=== PATIENT | female | born 1995 | race Caucasian/White ===

== ENCOUNTER 2020-09-01 12:26 | Emergency (ER) | payer OTHER ==
[2020-09-01 12:49] VITALS: BP 124/79; PULSE 111; O2SAT 96
[2020-09-01] MEDS ORDERED: BENADRYL 50 MG/ML IM ONE (12:54)
[2020-09-01] MEDS ORDERED: Pepcid 20 MG PO ONE (12:54)
[2020-09-01] MEDS ORDERED: solu-MEDROL 125 MG IM ONE (12:54)
--- NOTE | 2020-09-01 13:01 | ERPHSYRPT ---
- History of Present Illness Time Seen by Provider: 09/01/20 12:28 Source: patient Exam Limitations: no limitations Patient Subjective Stated Complaint: allergic reaction Triage Nursing Assessment: Patient ambulated back to ED and transferred self to bed. Patient A+O X3. Patient's skin pink, warm and dry. Patient states her neck started itching and had redness. Patient states she woke up today and has red rash all over body. Patient states the rash melara and itches. Patient denies any new products of consumption of food. Patient denies trouble breathing or swallowing at this time. Physician History: 25 years old female presented in the ER with chief complaint of itching and burning sensation all over body. Patient reports initially started as a burning/itching around the neck and upper back yesterday, took Benadryl and this morning woke up with rash all over. Denies any difficulty breathing or scratchiness in the throat/throat closing sensation. Unable to figure out any known allergen causing this. Timing/Duration: yesterday, gradual onset, worse Quality: burning, itchy Severity: moderate Location: generalized Possible Causes: no cause identified Modifying Factors: Improves With: antihistamine Associated Symptoms: rash, No difficulty breathing, No nasal congestion, No sore throat Allergies/Adverse Reactions: banana Allergy (Verified 09/01/20 12:35) latex Allergy (Verified 09/01/20 12:35) Penicillins Allergy (Verified 09/01/20 12:31) Home Medications: Norgestimate-Ethinyl Estradiol [Tri Femynor 28 Tablet] 1 tab PO DAILY 09/01/20 [History] Hx Influenza Vaccination/Date Given: Yes Hx Pneumococcal Vaccination/Date Given: No Immunizations Up to Date: Yes Travel Risk - International Travel Have you traveled outside of the country in past 3 weeks: No - Coronavirus Screening Are you exhibiting any of the following symptoms?: No Close contact with a COVID-19 positive Pt in past 14-21 Days: No - Vaccine Status Have you recieved a Covid-19 vaccination: No - Review of Systems Constitutional: No Symptoms Eyes: No Symptoms Ears, Nose, & Throat: No Symptoms Respiratory: No Symptoms Cardiac: No Symptoms Abdominal/Gastrointestinal: No Symptoms Genitourinary Symptoms: No Symptoms Musculoskeletal: No Symptoms Skin: Rash Neurological: No Symptoms Psychological: No Symptoms Endocrine: No Symptoms Hematologic/Lymphatic: No Symptoms Immunological/Allergic: No Symptoms - Past Medical History Pertinent Past Medical History: Yes Neurological History: Migraines ENT History: No Pertinent History Cardiac History: No Pertinent History Respiratory History: No Pertinent History Endocrine Medical History: No Pertinent History Musculoskeletal History: No Pertinent History GI Medical History: No Pertinent History History: No Pertinent History Female Reproductive Disorders: No Pertinent History - Past Surgical History Past Surgical History: Yes Neuro Surgical History: No Pertinent History Cardiac: No Pertinent History Respiratory: No Pertinent History Gastrointestinal: No Pertinent History Genitourinary: No Pertinent History Musculoskeletal: No Pertinent History Female Surgical History: Other Other Surgical History: mass removed from right ovary along with ovary, right fallopian tube and lining of colon - Social History Smoking Status: Current every day smoker How long have you smoked: years Exposure to second hand smoke: Yes Drug Use: marijuana Patient Lives Alone: No - Female History Hx Last Menstrual Period: currently Hx Now: No - Nursing Vital Signs Nursing Vital Signs: Initial Vital Signs Temperature 98.8 F 09/01/20 12:35 Pulse Rate 111 H 09/01/20 12:35 Respiratory Rate 18 09/01/20 12:35 Blood Pressure 124/79 09/01/20 12:35 O2 Sat by Pulse Oximetry 94 L 09/01/20 12:35 Pain Scale Pain Intensity 0 - Physical Exam General Appearance: no apparent distress, alert Eye Exam: PERRL/EOMI, eyes nml inspection Ears, Nose, Throat Exam: normal ENT inspection, TMs normal, pharynx normal, moist mucous membranes Neck Exam: normal inspection, non-tender, supple, full range of motion Respiratory Exam: normal breath sounds, lungs clear Cardiovascular Exam: regular rate/rhythm, normal heart sounds Back Exam: normal inspection, normal range of motion Extremity Exam: normal inspection, normal range of motion Neurologic Exam: alert, oriented x 3, cooperative, account technician II-XII nml as tested Skin Exam: rash (Slightly raised/blotchy/blanchable rash from neck down spurted in different locations. No tenderness to touch.) SpO2 Interpretation: normal SpO2: 96 O2 Delivery: Room Air Ordered Tests: Medication Summary Discontinued Medications Generic Name Dose Route Start Last Admin Trade Name Freq PRN Reason Stop Dose Admin Diphenhydramine HCl 50 mg 09/01/20 12:54 09/01/20 13:07 Benadryl 50 Mg/Ml IM 09/01/20 12:55 50 mg STAT ONE Administration Diphenhydramine HCl Confirm 09/01/20 13:05 Benadryl 50 Mg/Ml Administered 09/01/20 13:06 Dose 50 mg .ROUTE .STK-MED ONE Famotidine 40 mg 09/01/20 12:54 09/01/20 13:06 Pepcid 20 Mg PO 09/01/20 12:55 40 mg STAT ONE Administration Famotidine Confirm 09/01/20 13:05 Pepcid 20 Mg Administered 09/01/20 13:06 Dose 40 mg .ROUTE .STK-MED ONE Methylprednisolone Sodium Succinate 125 mg 09/01/20 12:54 09/01/20 13:07 Solu-Medrol 125 Mg IM 09/01/20 12:55 125 mg STAT ONE Administration Methylprednisolone Sodium Succinate Confirm 09/01/20 13:05 Solu-Medrol 125 Mg Administered 09/01/20 13:06 Dose 125 mg .ROUTE .STK-MED ONE - Progress Progress: improved Progress Note: She is given Solu-Medrol, Benadryl and Pepcid. Feeling better. We will continue with these meds to go home. Also will give EpiPen to use as needed. No respiratory symptoms at all. Stable for discharge with outpatient follow-up. 09/01/20 13:30 Counseled pt/family regarding: diagnosis, need for follow-up - Departure Departure Disposition: Home Clinical Impression: Allergic reaction Qualifiers: Encounter type: initial encounter Qualified Code(s): T78.40XA - Allergy, unspecified, initial encounter Condition: Stable Critical Care Time: No Referrals: DOCTOR,NO FAMILY [Primary Care Provider] - CAROLINE SAAB [ACTIVE STAFF] - (1-2 days for reevaluation) Instructions: Anaphylaxis, Allergy Skin Testing Additional Instructions: Follow-up with primary care for reevaluation and may need to follow-up with all ergist for further evaluation. Return to ER if have throat closing sensation, difficulty breathing or swelling of tongue etc. Prescriptions: Diphenhydramine HCl 25 mg [Benadryl 25 mg Capsule] 25 mg PO Q4H PRN PRN #20 capsule PRN Reason: Allergies Prednisone 20 mg [Deltasone 20 mg] 60 mg PO DAILY 5 Days #15 tablet Epinephrine [Epipen] 0.3 mg IM DIRECTIONS UNKNOWN PRN 1 Days #2 ml PRN Reason: Allergies Famotidine 20 mg [Pepcid 20 MG] 20 mg PO BID #14 tablet Albuterol 8 gm Mdi Hfa [Ventolin Hfa MDI] 8 gm IH Q4H #1 hfa.[email or web address].[email or web address]
[2020-09-01] MEDS ORDERED: solu-MEDROL 125 MG ONE (13:05)
[2020-09-01] MEDS ORDERED: BENADRYL 50 MG/ML ONE (13:05)
[2020-09-01] MEDS ORDERED: Pepcid 20 MG ONE (13:05)
== END 2020-09-01 13:49 | disposition home or self-care (01) ==
LOC: ED 12:26
DX: T78.40XA Allergy, unspecified, initial encounter (principal)
CPT/HCPCS: 96372; 99284; J1200; J2930; A9270-GY

== ENCOUNTER 2021-06-05 10:43 | Emergency (ER) | payer OTHER ==
[2021-06-05] MEDS ORDERED: Sodium Chloride 0.9% 1000 ML 1,000 ML IV STA (11:13)
--- NOTE | 2021-06-05 11:14 | ERPHSYRPT ---
- History of Present Illness Time Seen by Provider: 06/05/21 11:05 Source: patient Exam Limitations: no limitations Patient Subjective Stated Complaint: pt here for vanigal bleeding this morning when she woke , she is 7 weeks . she is having cramping, pt states she had intercourse last night Triage Nursing Assessment: pt alert, resp easy, skin w/d/p. face mask in place, abd soft, Physician History: This is a 25-year-old white female patient of Dr. Licea who presents with vaginal bleeding and suprapubic cramping that occurred this morning. Patient had sexual intercourse last evening. Patient is approximately 7 weeks along per her dates. She is not dizzy. She is not short of breath. Her nurse discharge planner has been notified and he sent her here for evaluation. Timing/Duration: today Activites at Onset: sexual activity (The morning after) Quality: cramping Onset Location: suprapubic, vaginal Pain Radiation: none Severity of Pain-Max: mild (To moderate) Severity of Pain-Current: mild Prior abdominal problems: none Sexual intercourse history: single partner Modifying Factors: Improves With: nothing Associated Symptoms: abdominal pain, , vaginal discharge Allergies/Adverse Reactions: banana Allergy (Verified 06/05/21 11:02) latex Allergy (Verified 06/05/21 11:02) Penicillins Allergy (Verified 06/05/21 11:02) Home Medications: Vit37/Iron/Folic Acid [Prenata Chewable Tablet] 1 ea DAILY 06/05/21 [History] Hx Influenza Vaccination/Date Given: Yes Hx Pneumococcal Vaccination/Date Given: No Travel Risk - International Travel Have you traveled outside of the country in past 3 weeks: No - Coronavirus Screening Are you exhibiting any of the following symptoms?: No Close contact with a COVID-19 positive Pt in past 14-21 Days: No - Vaccine Status Have you recieved a Covid-19 vaccination: Yes 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: Moderna - Vaccination Dates Date of 2cond Vaccination (if applicable): n/a - Review of Systems Constitutional: No Symptoms Eyes: No Symptoms Ears, Nose, & Throat: No Symptoms Respiratory: No Symptoms Cardiac: No Symptoms Abdominal/Gastrointestinal: Abdominal Pain (Supra pubic cramping) Genitourinary Symptoms: Vaginal Bleeding Musculoskeletal: No Symptoms Skin: No Symptoms Neurological: No Symptoms Psychological: No Symptoms Endocrine: No Symptoms Hematologic/Lymphatic: No Symptoms Immunological/Allergic: No Symptoms All Other Systems: Reviewed and Negative - Past Medical History Pertinent Past Medical History: Yes Neurological History: Migraines ENT History: No Pertinent History Cardiac History: No Pertinent History Respiratory History: No Pertinent History Endocrine Medical History: No Pertinent History Musculoskeletal History: Fractures GI Medical History: No Pertinent History History: No Pertinent History Female Reproductive Disorders: No Pertinent History Other Medical History: HX FX RIBS. SX HX: PARTIAL HYSTERECTOMY WITH REMOVAL OF LARGE OVARIAN MASS WHICH WAS BENIGH 2019. - Past Surgical History Past Surgical History: Yes Neuro Surgical History: No Pertinent History Cardiac: No Pertinent History Respiratory: No Pertinent History Gastrointestinal: No Pertinent History Genitourinary: No Pertinent History Musculoskeletal: No Pertinent History Female Surgical History: Other Other Surgical History: mass removed from right ovary along with ovary, right fallopian tube and lining of colon - Social History Smoking Status: Former smoker How long have you smoked: years Exposure to second hand smoke: Yes Drug Use: none Patient Lives Alone: No - Female History Hx Last Menstrual Period: dec Hx Now: Yes Expected Date of Delivery: 01/18/22 - Nursing Vital Signs Nursing Vital Signs: Initial Vital Signs Temperature 97.5 F 06/05/21 10:58 Pulse Rate 74 06/05/21 10:58 Blood Pressure 138/74 06/05/21 10:58 O2 Sat by Pulse Oximetry 95 06/05/21 10:58 Pain Scale Pain Intensity 5 - Physical Exam General Appearance: no apparent distress, alert, anxiety Eye Exam: PERRL/EOMI, eyes nml inspection Ears, Nose, Throat Exam: normal ENT inspection, moist mucous membranes Neck Exam: normal inspection, non-tender, supple, full range of motion Respiratory Exam: normal breath sounds, lungs clear, airway intact, No chest tenderness, No respiratory distress Cardiovascular Exam: regular rate/rhythm, normal heart sounds, normal peripheral pulses Gastrointestinal/Abdomen Exam: normal bowel sounds, tenderness (Mild suprapubic), No guarding, No rebound Pelvic Exam: not done Rectal Exam: not done Back Exam: normal inspection, normal range of motion, No CVA tenderness, No vertebral tenderness Extremity Exam: normal inspection, normal range of motion, pelvis stable Neurologic Exam: alert, oriented x 3, cooperative, granulator tender II-XII nml as tested, no rmal mood/affect, nml cerebellar function, nml station & gait, sensation nml Skin Exam: normal color, warm, dry Lymphatic Exam: No adenopathy SpO2 Interpretation: normal SpO2: 95 O2 Delivery: Room Air - Course Nursing assessment & vital signs reviewed: Yes Ordered Tests: Active Orders 24 hr Category Date Time Status IV Insertion STAT Care 06/05/21 11:13 Active OB <14 WKS 1ST GESTATION [US] Stat Exams 06/05/21 11:14 Completed CBC W DIFF Stat Lab 06/05/21 11:36 Completed CMP Stat Lab 06/05/21 11:36 Completed HCG, Quantitative (Inhouse) Stat Lab 06/05/21 11:36 Received UA W/RFX UR CULTURE Stat Lab 06/05/21 11:17 Completed Medication Summary Generic Name Dose Route Start Last Admin Trade Name Freq PRN Reason Stop Dose Admin Sodium Chloride 1,000 mls @ 999 mls/hr 06/05/21 11:13 06/05/21 11:28 Sodium Chloride 0.9% 1000 Ml IV 06/05/21 12:13 999 mls/hr .Q1H1M STA Administration Discontinued Medications Generic Name Dose Route Start Last Admin Trade Name Freq PRN Reason Stop Dose Admin Sodium Chloride Confirm 06/05/21 11:26 Sodium Chloride 0.9% 1000 Ml Administered 06/05/21 11:27 Dose 1,000 mls @ ud .ROUTE .STK-MED ONE Lab/Rad Data: Laboratory Result Diagrams 06/05/21 11:36 06/05/21 11:36 Laboratory Results 06/05/21 06/05/21 06/05/21 Range/Units 11:36 11:36 11:17 WBC 7.9 (4.0-10.5) K/mm3 RBC 4.58 (4.1-5.4) M/mm3 Hgb 12.4 (12.0-16.0) gm/dl Hct 37.8 (35-47) % MCV 82.5 (78-100) fl MCH 27.1 (26-32) pg MCHC 32.8 (32-36) g/dl RDW 14.5 H (11.5-14.0) % Plt Count 252 (150-450) K/mm3 MPV 9.4 (7.5-11.0) fl Gran % 70.7 H (36.0-66.0) % Eos # (Auto) 0.12 (0-0.5) Absolute Lymphs (auto) 1.76 (1.0-4.6) Absolute Monos (auto) 0.40 (0.0-1.3) Lymphocytes % 22.4 L (24.0-44.0) % Monocytes % 5.1 (0.0-12.0) % Eosinophils % 1.5 (0.00-5.0) % Basophils % 0.3 (0.0-0.4) % Absolute Granulocytes 5.56 (1.4-6.9) Basophils # 0.02 (0-0.4) Sodium 136 L (137-145) mmol/L Potassium 4.1 (3.5-5.1) mmol/L Chloride 106 (98-107) mmol/L Carbon Dioxide 26 (22-30) mmol/L Anion Gap 8.3 (5-15) MEQ/L BUN 6 L (7-17) mg/dL Creatinine 0.51 L (0.52-1.04) mg/dL Estimated GFR > 60.0 ML/MIN Glucose 88 (74-106) mg/dL Calcium 9.4 (8.4-10.2) mg/dL Total Bilirubin 0.40 (0.2-1.3) mg/dL AST 15 (14-36) U/L ALT 13 (0-35) U/L Alkaline Phosphatase 64 (38-126) U/L Serum Total Protein 6.6 (6.3-8.2) g/dL Albumin 3.7 (3.5-5.0) g/dL Urine Color STRAW (YELLOW) Urine Appearance CLEAR (CLEAR) Urine pH 7.0 (5-6) Ur Specific [place] 1.003 (1.005-1.025) Urine Protein NEGATIVE (Negative) Urine Ketones NEGATIVE (NEGATIVE) Urine Blood NEGATIVE (0-5) Efraín/ul Urine Nitrite NEGATIVE (NEGATIVE) Urine Bilirubin NEGATIVE (NEGATIVE) Urine Urobilinogen NEGATIVE (0-1) mg/dL Ur Leukocyte Esterase NEGATIVE (NEGATIVE) Urine WBC (Auto) 3-5 (0-5) /HPF Urine RBC (Auto) 0-2 (0-2) /HPF U Epithel Cells (Auto) RARE (FEW) /HPF Urine Bacteria (Auto) FEW (NEGATIVE) /HPF Urine Culture Reflexed NO (NO) Urine Glucose NEGATIVE (NEGATIVE) mg/dL - Progress Progress: improved Air Movement: good Progress Note: 06/05/21 11:57 OB ultrasound less than 14 weeks shows a single viable fetus at 8 weeks age. Heart rate 161. No abnormalities. I attempted to call Dr. Licea at 11:55 PM and there was no answer I had received a voicemail. Patient will be discharged home Blood Culture(s) Obtained: No Antibiotics given: No Counseled pt/family regarding: lab results, diagnosis, need for follow-up, rad results - Departure Departure Disposition: Home Clinical Impression: Vaginal bleeding during Condition: Stable Critical Care Time: No Referrals: DOCTOR,NO FAMILY [Primary Care Provider] - Follow up/PCP as directed Additional Instructions: Rest. avoid sexual intercourse until after you are seen by your nurse discharge planner.
[2021-06-05] MEDS ORDERED: Sodium Chloride 0.9% 1000 ML 1,000 ML ONE (11:26)
[2021-06-05 11:37] LABS: Absolute Neutrophil Ct (ANC) 5.56 (1.4-6.9); Basophil (Absolute #) 0.02 (0-0.4); Eosinophil % 1.5 % (0.00-5.0); Eosinophil (Absolute #) 0.12 (0-0.5); Hematocrit 37.8 % (35-47); Hemoglobin 12.4 gm/dl (12.0-16.0); Lymphocyte (Absolute #) 1.76 (1.0-4.6); Lymphocytes % 22.4 % (24.0-44.0); Mean Cell Volume 82.5 fl (78-100); Mean Corpuscular Hemoglobin 27.1 pg (26-32); Mean Corpuscular Hgb Concent. 32.8 g/dl (32-36); Mean Platelet Volume 9.4 fl (7.5-11.0); Monocytes % 5.1 % (0.0-12.0); Neutrophil % 70.7 % (36.0-66.0); Platelet Count 252 K/mm3 (150-450); Red Blood Count 4.58 M/mm3 (4.1-5.4); Red Cell Distribution Width 14.5 % (11.5-14.0); White Blood Count 7.9 K/mm3 (4.0-10.5)
[2021-06-05 11:42] LABS: Appearance CLEAR (CLEAR); Bilirubin NEGATIVE (NEGATIVE); Blood NEGATIVE Ery/ul (0-5); Glucose NEGATIVE (NEGATIVE); Ketones NEGATIVE (NEGATIVE); Leukocyte Esterase NEGATIVE (NEGATIVE); Nitrite NEGATIVE (NEGATIVE); Protein,Urine Dip NEGATIVE (Negative); Specific Gravity 1.003 (1.005-1.025); Urobilinogen NEGATIVE mg/dL (0-1)
[2021-06-05 11:49] LABS: Bacteria FEW /HPF (NEGATIVE); Epithelial Cells RARE /HPF (FEW); RBC 0-2 /HPF (0-2)
[2021-06-05 11:49] LABS: ALBUMIN 3.7 g/dL (3.5-5.0); ALKALINE PHOSPHATASE 64 U/L (38-126); ANION GAP 8.3 MEQ/L (5-15); BLOOD UREA NITROGEN 6 mg/dL (7-17); CHLORIDE 106 mmol/L (98-107); Calcium 9.4 mg/dL (8.4-10.2); Carbon Dioxide 26 mmol/L (22-30); Creatinine 1 0.51 mg/dL (0.52-1.04); EST GLOMERULAR FILTRATION RATE > 60.0 ML/MIN; Glucose 88 mg/dL (74-106); Potassium 4.1 mmol/L (3.5-5.1); SGOT/AST 15 U/L (14-36); SGPT/ALT 13 U/L (0-35); SODIUM 136 mmol/L (137-145); Total Protein 6.6 g/dL (6.3-8.2)
--- NOTE | 2021-06-05 11:51 | XRAY ---
Indication: Bleeding. Two-dimensional transabdominal early OB ultrasound performed. Comparison: None Single intrauterine gestational sac with presence of a single pole. Mean crown-rump length measures 1.66 cm corresponding to 8 weeks 0 days. heart rate 161 bpm. No abnormal subchorionic fluid. Left ovary sonographically unremarkable. Right ovary surgically absent. No suspicious adnexal mass or free fluid. Impression: Single viable intrauterine measuring 8 weeks 0 days. Expected date confinement is January 15, 2022. No acute findings.
[2021-06-05 12:14] VITALS: BP 119/74; PULSE 80; O2SAT 99
== END 2021-06-05 12:18 | disposition home or self-care (01) ==
LOC: ED 10:43
DX: O20.9 Hemorrhage in early pregnancy, unspecified (principal); Z3A.08 8 weeks gestation of pregnancy
CPT/HCPCS: 36000; 36415; 76801; 80053; 81001; 84702; 85025; 99284

== ENCOUNTER 2021-12-26 10:22 | Observation (INO) | payer OTHER ==
[2021-12-26 11:08] LABS: Appearance CLOUDY (CLEAR); Bilirubin NEGATIVE (NEGATIVE); Glucose NEGATIVE (NEGATIVE); Ketones SMALL-15 (NEGATIVE); RBC NEGATIVE Ery/ul (0-5)
[2021-12-26 11:09] LABS: Dipstick done @ ? MAIN LAB; Nitrite NEGATIVE (NEGATIVE); Protein,Urine Dip NEGATIVE (Negative); Urobilinogen 0.2 mg/dL (0-1)
[2021-12-26 11:20] LABS: Bacteria RARE /HPF (NEGATIVE); Epithelial Cells MODERATE /HPF (FEW)
[2021-12-26 11:42] LABS: Urine Cultured Indicated? NO
[2021-12-26 11:46] VITALS: BP 132/72; PULSE 97; O2SAT 96
== END 2021-12-26 12:20 | disposition home or self-care (01) ==
LOC: OB 10:22
PROVIDERS: ADMIT Obstetrics & Gynecology; ATTEND Obstetrics & Gynecology
DX: Z34.03 Encounter for supervision of normal first pregnancy, third trimester (principal); Z3A.36 36 weeks gestation of pregnancy
CPT/HCPCS: 81015; G0378

== ENCOUNTER 2022-01-01 08:36 | Observation (INO) | payer OTHER ==
[2022-01-01 08:59] VITALS: BP 122/74; PULSE 83; O2SAT 97
== END 2022-01-01 09:50 | disposition home or self-care (01) ==
LOC: OB 08:36
PROVIDERS: ADMIT Obstetrics & Gynecology; ATTEND Obstetrics & Gynecology
DX: Z34.03 Encounter for supervision of normal first pregnancy, third trimester (principal); Z3A.37 37 weeks gestation of pregnancy
CPT/HCPCS: 99213; G0378

== ENCOUNTER 2022-01-16 13:47 | Observation (INO) | payer OTHER ==
[2022-01-19 06:54] VITALS: O2SAT 98
[2022-01-19 08:08] LABS: Bacteria RARE /HPF (NEGATIVE); Epithelial Cells RARE /HPF (FEW); Mucus SLIGHT /HPF (NEGATIVE); RBC 0-2 /HPF (0-2)
[2022-01-19 08:14] LABS: Appearance CLEAR (CLEAR); Bilirubin NEGATIVE (NEGATIVE); Glucose NEGATIVE (NEGATIVE); Ketones TRACE (NEGATIVE); Ph 6.5 (5-6); Protein,Urine Dip NEGATIVE (Negative); RBC SMALL Ery/ul (0-5); Specific Gravity 1.025 (1.005-1.025); Urobilinogen 0.2 mg/dL (0-1)
[2022-01-19 08:15] LABS: Nitrite NEGATIVE (NEGATIVE); Urine Cultured Indicated? YES
[2022-01-19 08:16] LABS: Dipstick done @ ? MAIN LAB
[2022-01-19 08:25] LABS: Amphetamine,Urine NEGATIVE (NEGATIVE); Barbiturate,Urine NEGATIVE (NEGATIVE); Benzodiazepine,Urine NEGATIVE (NEGATIVE); Cocaine,Urine NEGATIVE (NEGATIVE); Methadone,Urine NEGATIVE (NEGATIVE); Opiate,Urine NEGATIVE (NEGATIVE); PCP,Urine NEGATIVE (NEGATIVE); THC,Urine NEGATIVE (NEGATIVE)
[2022-01-19 08:46] VITALS: BP 136/72; PULSE 85
== END 2022-01-19 08:44 | disposition home or self-care (01) ==
LOC: WHC 13:47 → OB 01-19 06:23
PROVIDERS: ADMIT Obstetrics & Gynecology; ATTEND Obstetrics & Gynecology
DX: Z34.83 Encounter for supervision of other normal pregnancy, third trimester (principal); Z3A.40 40 weeks gestation of pregnancy
CPT/HCPCS: 59426; 80307; 81015; 87086; G0378; 81002

== ENCOUNTER 2022-01-19 08:22 | Inpatient (IN) | payer OTHER ==
[2022-01-19] MEDS ORDERED: Ephedrine Sulfate 50 MG/ML IV PRN (15:33)
[2022-01-19] MEDS ORDERED: LANSINOH 40 GM TOP PRN (15:33)
[2022-01-19] MEDS ORDERED: TUCKS TP PRN (15:33)
[2022-01-19] MEDS ORDERED: Lactated Ringers 1,000 ML IV ONE (15:33)
[2022-01-19] MEDS ORDERED: FENTANYL 2 MCG-BUPIV 0.125%-NS 250 ML Epidur 250 ML EPIDURAL SCH (15:45)
[2022-01-19] MEDS ORDERED: PITOCIN 30 UNITS/ LR 500 ML 30 UNITS/500 ML PLAST..BAG IV SCH (16:00)
[2022-01-19] MEDS: CYTOTEC PO SCH ×4 (17:22→23:29)
[2022-01-19 17:28] LABS: Absolute Neutrophil Ct (ANC) 6.87 x10^3/uL (1.4-6.9); Basophil (Absolute #) 0.01 x10^3/uL (0-0.4); Eosinophil % 0.2 % (0.00-5.0); Eosinophil (Absolute #) 0.02 x10^3/uL (0-0.5); Hematocrit 32.8 % (35-47); Hemoglobin 10.4 g/dL (12.0-16.0); Lymphocyte (Absolute #) 1.54 x10^3/uL (1.0-4.6); Lymphocytes % 16.9 % (24.0-44.0); Mean Cell Volume 79.4 fL (78-100); Mean Corpuscular Hemoglobin 25.2 pg (26-32); Mean Corpuscular Hgb Concent. 31.7 g/dL (32-36); Mean Platelet Volume 11.5 fL (7.5-11.0); Monocyte (Absolute #) 0.61 x10^3/uL (0.0-1.3); Monocytes % 6.7 % (0.0-12.0); Neutrophil % 75.7 % (36.0-66.0); Platelet Count 203 x10^3/uL (150-450); Red Blood Count 4.13 x10^6/uL (4.1-5.4); Red Cell Distribution Width 15.7 % (11.5-14.0); White Blood Count 9.1 x10^3/uL (4.0-10.5)
[2022-01-19 18:11] LABS: ABO TYPING O; Antibody Screen NEGATIVE (NEGATIVE); RH TYPING POSITIVE
[2022-01-20] MEDS ORDERED: Nubain 10 MG/ML IV PRN
[2022-01-20] MEDS ORDERED: STADOL 2 MG IV PRN
[2022-01-20] MEDS ORDERED: Zofran 4 MG/2 ML VIAL IV PRN
[2022-01-20] MEDS: CYTOTEC PO SCH ×3 (01:26→05:35)
[2022-01-20] MEDS: STADOL 2 MG IV PRN ×2 (01:57→05:29)
[2022-01-20] MEDS: Lactated Ringers 1,000 ML IV SCH ×2 (07:02→18:42)
[2022-01-20] MEDS ORDERED: SUBLIMAZE 100 MCG/2 ML ONE (11:28)
[2022-01-20] MEDS ORDERED: Ephedrine Sulfate 50 MG/ML ONE (12:18)
[2022-01-20] MEDS ORDERED: Dermoplast Spray TP PRN (15:33)
[2022-01-20] MEDS: MOTRIN 400 MG PO PRN ×2 (18:01→23:50)
[2022-01-21 06:12] LABS: Absolute Neutrophil Ct (ANC) 8.84 x10^3/uL (1.4-6.9); Basophil (Absolute #) 0.03 x10^3/uL (0-0.4); Eosinophil % 0.4 % (0.00-5.0); Eosinophil (Absolute #) 0.04 x10^3/uL (0-0.5); Hematocrit 29.7 % (35-47); Hemoglobin 9.3 g/dL (12.0-16.0); Lymphocyte (Absolute #) 1.51 x10^3/uL (1.0-4.6); Lymphocytes % 13.3 % (24.0-44.0); Mean Cell Volume 80.1 fL (78-100); Mean Corpuscular Hemoglobin 25.1 pg (26-32); Mean Corpuscular Hgb Concent. 31.3 g/dL (32-36); Mean Platelet Volume 11.5 fL (7.5-11.0); Monocytes % 7.9 % (0.0-12.0); Neutrophil % 77.6 % (36.0-66.0); Platelet Count 178 x10^3/uL (150-450); Red Blood Count 3.71 x10^6/uL (4.1-5.4); Red Cell Distribution Width 16.1 % (11.5-14.0); White Blood Count 11.4 x10^3/uL (4.0-10.5)
[2022-01-21] MEDS: FERREX 150 PO SCH (09:07)
[2022-01-21] MEDS: Docusate Sodium 100 MG PO SCH ×3 (09:08→23:49)
[2022-01-21 09:52] LABS: HBsAg Screen Negative (Negative); HIV Screen 4th Generation wRfx Non Reactive (Non Reactive); RPR Non Reactive (Non Reactive)
--- NOTE | 2022-01-21 10:20 | PCM.NOTE ---
Date and Time: 01/21/22 1019 Subjective Assessment: sp ppd 1 pt resting in bed and doing well without complaints. ambulating and tolerating diet. vss afebrile abd; soft uterus; firm lochia; mild a/p sp ppd 1 dc home tomorrow fu office 3 wks OBJECTIVE DATA Vital Signs: Vital Signs - 24 hr Temp Pulse Resp BP BP Pulse Ox 01/21/22 02:00 98.6 F 96 H 20 118/62 97 01/21/22 01:00 87 01/20/22 20:00 98.7 F 87 18 130/62 97 01/20/22 18:00 98.7 F 87 18 121/57 98 01/20/22 17:00 98.7 F 69 18 126/59 98 01/20/22 16:15 98.7 F 18 126/59 98 01/20/22 16:00 98.7 F 87 18 121/65 98 01/20/22 15:30 98.7 F 69 18 121/65 96 01/20/22 15:00 98.7 F 71 18 116/58 96 01/20/22 14:45 97.8 F 90 18 123/56 96 01/20/22 14:30 98.7 F 79 18 116/53 96 01/20/22 14:15 98.7 F 79 18 116/53 96 01/20/22 14:00 98.7 F 90 18 118/65 125/58 96 01/20/22 13:45 97.6 F 88 20 118/65 01/20/22 13:30 97.6 F 105 H 20 142/93 01/20/22 13:15 97.6 F 79 20 123/60 01/20/22 13:00 97.6 F 72 20 118/67 01/20/22 12:45 97.6 F 72 20 118/67 01/20/22 12:30 97.6 F 68 20 111/58 01/20/22 12:15 97.6 F 62 20 109/58 01/20/22 12:00 97.6 F 62 20 119/60 01/20/22 11:45 97.6 F 73 20 118/59 01/20/22 11:30 97.6 F 80 20 134/64 01/20/22 11:00 97.6 F 64 20 121/60 96 01/20/22 10:45 97.6 F 59 L 20 130/71 96 01/20/22 10:30 97.6 F 76 20 133/70 96 Pain Assessment - Last Documented Pain Intensity [Anterior] 0 Pain Intensity 4 Pain Scale Used 0-10 Pain Scale Intake and Output: Intake & Output 01/18/22 01/19/22 01/20/22 01/21/22 11:59 11:59 11:59 11:59 Intake Total 1500 1750 Output Total 200 Balance 1500 1550 Weight 112.945 kg Lab Results: Lab Results-Last 24 Hours 01/19/22 01/21/22 Range/Units 17:15 06:05 WBC 11.4 H (4.0-10.5) x10^3/uL RBC 3.71 L (4.1-5.4) x10^6/uL Hgb 9.3 L (12.0-16.0) g/dL Hct 29.7 L (35-47) % MCV 80.1 (78-100) fL MCH 25.1 L (26-32) pg MCHC 31.3 L (32-36) g/dL RDW 16.1 H (11.5-14.0) % Plt Count 178 (150-450) x10^3/uL MPV 11.5 H (7.5-11.0) fL Gran % 77.6 H (36.0-66.0) % Immature Gran % (Auto) 0.5 H (0.00-0.4) % Nucleat RBC Rel Count 0.0 (0.00-0.1) % Eos # (Auto) 0.04 (0-0.5) x10^3/uL Immature Gran # (Auto) 0.06 H (0.00-0.03) x10^3u/L Absolute Lymphs (auto) 1.51 (1.0-4.6) x10^3/uL Absolute Monos (auto) 0.90 (0.0-1.3) x10^3/uL Absolute Nucleated RBC 0.00 (0.00-0.01) x10^3u/L Lymphocytes % 13.3 L (24.0-44.0) % Monocytes % 7.9 (0.0-12.0) % Eosinophils % 0.4 (0.00-5.0) % Basophils % 0.3 (0.0-0.4) % Absolute Granulocytes 8.84 H (1.4-6.9) x10^3/uL Basophils # 0.03 (0-0.4) x10^3/uL RPR Non Reactive (Non Reactive) Hep Bs Antigen Negative (Negative) HIV 1&2 Ab/P24 Ag 4thGn Non Reactive (Non Reactive) Assessment/Plan (1) Vaginal delivery Current Visit: Yes Status: Acute Code(s): O80 - ENCOUNTER FOR FULL-TERM UNCOMPLICATED DELIVERY
--- NOTE | 2022-01-21 10:24 | PCM.DS ---
Discharge Summary Date of Admission: 01/20/22 08:22 Admitting Physician: DHRUV PALOMARES DO Primary Care Provider: ANGELICA ESTRADA Allergies Allergies Penicillins Allergy (Intermediate, Verified 01/19/22 07:04) Rash banana Allergy (Mild, Verified 01/19/22 07:04) Itching latex Allergy (Mild, Verified 01/19/22 07:04) Itching Sulfa (Sulfonamide Antibiotics) Allergy (Mild, Verified 12/26/21 11:18) Itching And nausea Hospital Summary - Hospital Course Hospital Course: pt adimtted on jan 19 who was at 40 wks gestation and admitted for oral cytotec induction and was discontinued on jan 20 in the am and pitocin started. pt subsequently delivered live baby boy after having received her epidural without complication with 1st degree vaginal tear. during period did well and was stable. ambulating and tolerating diet. stable hgb at 9.3. pt at this time stable for discharge on jan 22. all questions answered to her satisfaction and was advised to fu in office in 3 wks. - Vitals & Intake/Output Vital Signs: Vital Signs Temperature 98.6 F 01/21/22 02:00 Pulse Rate 96 H 01/21/22 02:00 Respiratory Rate 20 01/21/22 02:00 Blood Pressure 118/62 01/21/22 02:00 O2 Sat by Pulse Oximetry 97 01/21/22 02:00 Intake & Output: Intake & Output 01/18/22 01/19/22 01/20/22 01/21/22 11:59 11:59 11:59 11:59 Intake Total 1500 1750 Output Total 200 Balance 1500 1550 Weight 112.945 kg - Lab Result Diagrams: 01/21/22 06:05 Lab Results-Last 24 Hrs: Lab Results-Last 24 Hours 01/19/22 01/21/22 Range/Units 17:15 06:05 WBC 11.4 H (4.0-10.5) x10^3/uL RBC 3.71 L (4.1-5.4) x10^6/uL Hgb 9.3 L (12.0-16.0) g/dL Hct 29.7 L (35-47) % MCV 80.1 (78-100) fL MCH 25.1 L (26-32) pg MCHC 31.3 L (32-36) g/dL RDW 16.1 H (11.5-14.0) % Plt Count 178 (150-450) x10^3/uL MPV 11.5 H (7.5-11.0) fL Gran % 77.6 H (36.0-66.0) % Immature Gran % (Auto) 0.5 H (0.00-0.4) % Nucleat RBC Rel Count 0.0 (0.00-0.1) % Eos # (Auto) 0.04 (0-0.5) x10^3/uL Immature Gran # (Auto) 0.06 H (0.00-0.03) x10^3u/L Absolute Lymphs (auto) 1.51 (1.0-4.6) x10^3/uL Absolute Monos (auto) 0.90 (0.0-1.3) x10^3/uL Absolute Nucleated RBC 0.00 (0.00-0.01) x10^3u/L Lymphocytes % 13.3 L (24.0-44.0) % Monocytes % 7.9 (0.0-12.0) % Eosinophils % 0.4 (0.00-5.0) % Basophils % 0.3 (0.0-0.4) % Absolute Granulocytes 8.84 H (1.4-6.9) x10^3/uL Basophils # 0.03 (0-0.4) x10^3/uL RPR Non Reactive (Non Reactive) Hep Bs Antigen Negative (Negative) HIV 1&2 Ab/P24 Ag 4thGn Non Reactive (Non Reactive) Micro Results-Entire Visit: Microbiology 01/20/22 09:00 Urine Culture - Preliminary Clean Catch Midstream NO GROWTH TO DATE Final Diagnosis/Problem List - Final Discharge Diagnosis/Problem (1) Vaginal delivery Current Visit: Yes Status: Acute Code(s): O80 - ENCOUNTER FOR FULL-TERM UNCOMPLICATED DELIVERY - Discharge Disposition: Home, Self-Care Condition: Stable Prescriptions: No Action Vit37/Iron/Folic Acid [Prenata Chewable Tablet] 1 ea PO DAILY Sertraline HCl 50 mg [Zoloft 50 mg Tablet] 50 mg PO DAILY Ondansetron ODT 4 MG [Zofran Odt 4 mg] 4 mg PO Q6H PRN PRN Reason: Nausea Acetaminophen 325 mg [Tylenol 325 mg] 325 mg PO Q6H Follow up with: ANGELICA ESTRADA [Primary Care Provider] - DHRUV PALOMARES DO [ACTIVE STAFF] - 3 weeks (should fu in office in 3 wks should call office for any issues that may arise.)
[2022-01-21] MEDS: TYLENOL EXTRA STRENGTH 500 MG PO PRN ×2 (12:44→20:01)
[2022-01-21] MEDS ORDERED: M-M-R II Vaccine With Diluent SQ ONE (15:33)
[2022-01-21] MEDS ORDERED: Adacel Vial IM ONE (15:33)
[2022-01-21] MEDS: MOTRIN 400 MG PO PRN ×2 (18:29→23:47)
[2022-01-22] MEDS: FERREX 150 PO SCH (08:59)
[2022-01-22] MEDS: MOTRIN 400 MG PO PRN (08:59)
[2022-01-22] MEDS: Docusate Sodium 100 MG PO SCH (09:00)
[2022-01-22] MEDS ORDERED: ZOFRAN ODT 4 MG PO PRN (09:07)
[2022-01-22 09:49] VITALS: BP 131/64; PULSE 84; O2SAT 99
[2022-01-22] MEDS ORDERED: IRON PO SCH (10:00)
[2022-01-22] MEDS ORDERED: ZOLOFT 50 MG TABLET PO SCH (10:00)
[2022-01-22] MEDS ORDERED: FOLIC ACID PO SCH (10:00)
[2022-01-22] MEDS ORDERED: [UNRECOGNIZED DRUG - OTHER] PO SCH (10:00)
[2022-01-22] MEDS ORDERED: THERAGRAN MULTIVITAMIN PO SCH (10:00)
[2022-01-22] MEDS ORDERED: PRENATAL VIT37 PO SCH (10:00)
== END 2022-01-22 16:30 | disposition home or self-care (01) | DRG 807 ==
LOC: OB 08:22 → OBSVTOIN 01-20 08:22
PROVIDERS: ADMIT Obstetrics & Gynecology; ATTEND Obstetrics & Gynecology
PROC: 10E0XZZ Delivery of Products of Conception, External Approach (ICD-10-PCS; principal; 2022-01-20)
PROC: 0HQ9XZZ Repair Perineum Skin, External Approach (ICD-10-PCS; 2022-01-20)
DX: O70.0 First degree perineal laceration during delivery (principal); Z37.0 Single live birth; Z3A.40 40 weeks gestation of pregnancy; Z20.828 Contact with and (suspected) exposure to other viral communicable diseases
CPT/HCPCS: 36415; 59409; 85025; 86592; 86850; 86900; 86901; 87086; 87340; 87389; 90384; 90472; 90707; 90715; G0378; J0595; J2405; J2590; J3010; A9270-GY

== ENCOUNTER 2022-11-29 08:02 | Emergency (ER) | payer OTHER ==
[2022-11-29] MEDS ORDERED: TYLENOL 325 MG PO STA (08:11)
[2022-11-29] MEDS ORDERED: TYLENOL 325 MG ONE (08:13)
[2022-11-29 08:49] LABS: Group A Strep DETECTED (NEGATIVE)
[2022-11-29] MEDS ORDERED: MOTRIN 600 MG PO ONE (09:01)
[2022-11-29] MEDS ORDERED: MOTRIN 600 MG ONE (09:02)
[2022-11-29 09:06] LABS: INFLUENZA A NEGATIVE (NEGATIVE); INFLUENZA B NEGATIVE (NEGATIVE); RESPIRATORY SYNCTIAL VIRUS NEGATIVE (NEGATIVE); SARS-CoV-2 Xpert Express NEGATIVE (NEGATIVE)
--- NOTE | 2022-11-29 09:33 | ERPHSYRPT ---
- History of Present Illness Time Seen by Provider: 11/29/22 08:18 Source: patient Exam Limitations: no limitations Patient Subjective Stated Complaint: pt here for fever, sore throat, headache since last night, had tylenol last at 1030 last night, Triage Nursing Assessment: pt alert, walked in, mask in place, resp easy, congested sounding, skin w/d/p. no edema noted Physician History: 27 years old female presented in the ER with chief complaint of fever sore throat, headache, sinus congestion since last night. Tmax of 102. Taking Tylenol with symptomatic relief. Denies any difficulty breathing, minimal nonproductive cough occasionally. Denies any known sick contact. Allergies/Adverse Reactions: Penicillins Allergy (Intermediate, Verified 11/29/22 08:11) Rash banana Allergy (Mild, Verified 11/29/22 08:11) Itching latex Allergy (Mild, Verified 11/29/22 08:11) Itching Sulfa (Sulfonamide Antibiotics) Allergy (Mild, Verified 11/29/22 08:11) Itching And nausea Home Medications: Sertraline HCl 50 mg [Zoloft 50 mg Tablet] 50 mg PO DAILY 12/26/21 [History] Hx Influenza Vaccination/Date Given: No Hx Pneumococcal Vaccination/Date Given: No Immunizations Up to Date: Yes Travel Risk - International Travel Have you traveled outside of the country in past 3 weeks: No - Coronavirus Screening Are you exhibiting any of the following symptoms?: No Close contact with a COVID-19 positive Pt in past 14-21 Days: No - Vaccine Status Have you recieved a Covid-19 vaccination: Yes 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: [employer] - Vaccination Dates Date of 2cond Vaccination (if applicable): N/A - Review of Systems Constitutional: Fever, Chills, Fatigue, Weakness Eyes: No Symptoms Ears, Nose, & Throat: Nose Congestion, Mouth Swelling, Throat Pain, Throat Swelling Respiratory: Cough Cardiac: No Symptoms Abdominal/Gastrointestinal: No Symptoms Skin: No Symptoms Neurological: Headache Psychological: No Symptoms Hematologic/Lymphatic: No Symptoms Immunological/Allergic: No Symptoms - Past Medical History Pertinent Past Medical History: Yes Neurological History: Migraines ENT History: No Pertinent History Cardiac History: No Pertinent History Respiratory History: No Pertinent History Endocrine Medical History: No Pertinent History Musculoskeletal History: Fractures GI Medical History: No Pertinent History History: No Pertinent History Psycho-Social History: Anxiety, Depression Female Reproductive Disorders: No Pertinent History Other Medical History: HX FX RIBS. SX HX: PARTIAL HYSTERECTOMY WITH REMOVAL OF LARGE OVARIAN MASS WHICH WAS BENIGH 2019. 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 - Social History Smoking Status: Former smoker How long have you smoked: years Exposure to second hand smoke: Yes Drug Use: none Patient Lives Alone: No - Female History Hx Last Menstrual Period: 2 weeks ago Hx Now: No - Nursing Vital Signs Nursing Vital Signs: Initial Vital Signs Blood Pressure 92/58 11/29/22 08:09 O2 Sat by Pulse Oximetry 97 11/29/22 08:09 Pain Scale Pain Intensity 3 - Physical Exam General Appearance: no apparent distress, alert Eye Exam: bilateral eye: normal inspection, PERRL, EOMI Ear Exam: bilateral ear: auricle normal, canal normal, TM normal Nasal Exam: normal inspection Throat Exam: pharynx swelling, tonsillar exudate, tonsillar swelling Neck Exam: normal inspection, non-tender, supple, full range of motion Cardiovascular/Respiratory Exam: normal breath sounds, regular rate/rhythm Neurologic Exam: alert, oriented x 3, cooperative, 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 tested Skin Exam: normal color SpO2 Interpretation: normal SpO2: 96 O2 Delivery: Room Air Ordered Tests: Medication Summary Discontinued Medications Generic Name Dose Route Start Last Admin Trade Name Sarah PRN Reason Stop Dose Admin Acetaminophen 975 mg 11/29/22 08:11 11/29/22 08:22 Acetaminophen 325 Mg Tablet PO 11/29/22 08:12 975 mg STAT STA Administration Acetaminophen Confirm 11/29/22 08:13 Acetaminophen 325 Mg Tablet Administered 11/29/22 08:14 Dose 975 mg .ROUTE .STK-MED ONE Ibuprofen 600 mg 11/29/22 09:01 11/29/22 09:03 Ibuprofen 600 Mg Tablet PO 11/29/22 09:02 600 mg STAT ONE Administration Ibuprofen Confirm 11/29/22 09:02 Ibuprofen 600 Mg Tablet Administered 11/29/22 09:03 Dose 600 mg .ROUTE .STK-MED ONE Lab/Rad Data: Laboratory Results 11/29/22 Range/Units 08:28 Influenza Type A Ag NEGATIVE (NEGATIVE) Influenza Type B Ag NEGATIVE (NEGATIVE) RSV (PCR) NEGATIVE (NEGATIVE) SARS-CoV-2 (PCR) NEGATIVE (NEGATIVE) Group A Strep Antibody DETECTED (NEGATIVE) - Progress Progress: improved, re-examined Progress Note: 11/29/22 09:31 27 years old female presented in the ER with chief complaint of fever sore throat, headache, sinus congestion since last night. Tmax of 102. Taking Tylenol with symptomatic relief. Denies any difficulty breathing, minimal nonproductive cough occasionally. Denies any known sick contact. Given Tylenol for symptomatic relief. Has negative flu and COVID. Has positive strep, started on Zithromax. Recommended supportive care with Tylenol/ibuprofen and outpatient follow-up. Discussed signs symptoms of worsening needing return to ER which he seems understanding. Counseled pt/family regarding: lab results, diagnosis, need for follow-up Medical Desision Making - Diagnostic Testing Diagnostic test were ordered, analyzed, and reviewed by me: Yes - Risk of complications The pt has a mod risk of morbidity or mortality based on: Need for prescription drug management - Departure Departure Disposition: Home Clinical Impression: Acute streptococcal pharyngitis Condition: Stable Critical Care Time: No Referrals: BRYANNA BROWNE [Primary Care Provider] - Follow up/PCP as directed (1-2 days for reevaluation) Instructions: Strep Throat (DC) Additional Instructions: Plenty of fluids to keep yourself well-hydrated. Take Tylenol/ibuprofen as needed. Follow-up with your primary care doctor for reevaluation. Return to ER for intractable pain in the throat, difficulty swallowing, difficulty breathing, persistent high-grade fever etc. Prescriptions: Azithromycin 250 mg [Zithromax 250 MG TABLET] 250 mg PO ZPACK #6 tablet
[2022-11-29 09:50] VITALS: BP 122/82; PULSE 108; RESP 17; TEMP 99.6
[2022-11-29 17:16] VITALS: O2SAT 96
== END 2022-11-29 09:51 | disposition home or self-care (01) ==
LOC: ED 08:02
DX: J02.0 Streptococcal pharyngitis (principal); R50.9 Fever, unspecified; R51.9 Headache, unspecified; Z79.899 Other long term (current) drug therapy
CPT/HCPCS: 0241U; 87651; 99283; A9270-GY

== ENCOUNTER 2024-06-01 08:54 | Emergency (ER) | payer OTHER ==
[2024-06-01 09:54] LABS: Absolute Neutrophil Ct (ANC) 6.87 x10^3/uL (1.56-6.13); BASOPHIL % 0.2 % (0.1-1.2); Basophil (Absolute #) 0.02 x10^3/uL (0.01-0.08); Eosinophil % 0.8 % (0.7-5.8); Eosinophil (Absolute #) 0.08 x10^3/uL (0.04-0.36); Hematocrit 40.2 % (34.1-44.9); IMMATURE GRAN # 0.05 x10^3u/L (0.001-0.031); IMMATURE GRAN % 0.5 % (0.001-0.429); Lymphocyte (Absolute #) 2.69 x10^3/uL (1.18-3.74); Lymphocytes % 26.1 % (19.3-51.7); Mean Cell Volume 80.6 fL (79.4-94.8); Mean Corpuscular Hemoglobin 26.1 pg (25.6-32.2); Mean Corpuscular Hgb Concent. 32.3 g/dL (32.2-35.5); Mean Platelet Volume 10.1 fL (9.4-12.3); Monocyte (Absolute #) 0.58 x10^3/uL (0.24-0.86); Monocytes % 5.6 % (4.7-12.5); Neutrophil % 66.8 % (34.0-71.1); Platelet Count 332 x10^3/uL (182-369); Red Blood Count 4.99 x10^6/uL (3.93-5.22); White Blood Count 10.3 x10^3/uL (3.98-10.04)
[2024-06-01 09:56] LABS: HCG URINE TEST NEGATIVE (NEGATIVE)
[2024-06-01 10:00] LABS: Appearance Clear (Clear); Bacteria None Seen /HPF (None Seen); Bilirubin Negative (Negative); Blood Negative (Negative); Epithelial Cells None Seen /HPF (None Seen); Glucose, Urine Negative (Negative); Hyaline Casts NONE SEEN /LPF (0-2); Ketones Negative (Negative); Leukocyte Esterase Trace (Negative); Nitrite Negative (Negative); Protein,Urine Dip Negative (Negative); RBC 0-2 /HPF (0-5); Specific Gravity 1.015 (1.005-1.030); Urobilinogen 0.2 mg/dL (0.2); WBC 0-2 /HPF (0-5)
[2024-06-01 10:10] LABS: ALBUMIN 4.9 g/dL (3.5-5.0); ANION GAP 18.9 MEQ/L (5-15); BILIRUBIN,TOTAL 0.6 mg/dL (0.2-1.3); Calcium 9.9 mg/dL (8.4-10.2); Creatinine 1 0.78 mg/dL (0.52-1.04); EST GLOMERULAR FILTRATION RATE 106.7 ML/MIN; Potassium 3.3 mmol/L (3.5-5.1); Total Protein 8.3 g/dL (6.3-8.2)
[2024-06-01 11:10] VITALS: O2SAT 98
--- NOTE | 2024-06-01 12:59 | XRAY ---
Indication: Abdominal pain 2 weeks. Multiple contiguous axial images obtained through the abdomen and pelvis using 80 cc Isovue 370 contrast. Comparison: None Lung bases demonstrates dependent atelectasis. No infiltrate or effusion. Heart not enlarged. Noncontrasted stomach and bowel loops appear nonobstructed with normal appendix. No free fluid/air. Remaining liver, gallbladder, pancreas, spleen, adrenal glands, kidneys, ureters, bladder, uterus, and aorta are normal in CT appearance and attenuation. No pathologic retroperitoneal lymphadenopathy. Osseous structures intact. No ventral or inguinal hernias. Impression: Normal CT abdomen/pelvis with contrast exam.
--- NOTE | 2024-06-01 13:03 | XRAY ---
Indication: Pain 2 weeks. Two-dimensional gallbladder sonogram performed. Comparison: None Pancreas not well seen due to overlying bowel gas. Minimal gallbladder sludge. No gallstone, wall thickening, or pericholecystic fluid. Remaining visualized liver, and right kidney are sonographically unremarkable. Common bile duct measures 3.7 mm. No intrahepatic biliary distention or free fluid. Right kidney measures 11.5 x 4.4 x 4.6 cm. Impression: Nonvisualization pancreas. Minimal gallbladder sludge. Negative cholelithiasis/cholecystitis
--- NOTE | 2024-06-01 13:19 | ERPHSYRPT ---
- History of Present Illness Time Seen by Provider: 06/01/24 10:28 Source: patient Exam Limitations: no limitations Patient Subjective Stated Complaint: C/O lower abdominal pain for the past few weeks. States irregular menstral cycles in the past month. OB is Dr. Licea and she has an appointment with him tomorrow. Triage Nursing Assessment: Patient ambulated back to ER without difficulties. She is alert and oriented. NO SOB. Skin tone normal. VASQUEZ WNL. Timing/Duration: today Severity: mild Associated Symptoms: abdominal pain Allergies/Adverse Reactions: Penicillins Allergy (Intermediate, Verified 06/01/24 09:47) Rash latex Allergy (Mild, Verified 06/01/24 09:47) Itching Sulfa (Sulfonamide Antibiotics) Allergy (Mild, Verified 06/01/24 09:47) Itching And nausea Home Medications: Sertraline HCl 50 mg [Zoloft 50 mg Tablet] 100 mg PO DAILY 12/26/21 [History] Norethindrone 1 tab PO DAILY 06/01/24 [History] Hx Tetanus, Diphtheria Vaccination/Date Given: Yes Hx Influenza Vaccination/Date Given: No Hx Pneumococcal Vaccination/Date Given: No Immunizations Up to Date: Yes Travel Risk - International Travel Have you traveled outside of the country in past 3 weeks: No - Emerging Infectious Disease Are you exhibiting symptoms associated with any current EIDs: Yes Symptoms: Abdominal Pain - Review of Systems Constitutional: No Symptoms Eyes: No Symptoms Ears, Nose, & Throat: No Symptoms Respiratory: No Symptoms Cardiac: No Symptoms Abdominal/Gastrointestinal: Abdominal Pain Genitourinary Symptoms: No Symptoms Musculoskeletal: No Symptoms - Past Medical History Neurological History: No Pertinent History ENT History: No Pertinent History Cardiac History: No Pertinent History Respiratory History: No Pertinent History History: Other (right oophorectomy ) Other Medical History: HX FX RIBS. SX HX: PARTIAL HYSTERECTOMY WITH REMOVAL OF LARGE OVARIAN MASS WHICH WAS BENIGH 2019. 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 - Female History Hx Last Menstrual Period: irregular Hx Now: No (unsure) - Social History Smoking Status: Former smoker - Social Determinants of Health Will the patient participate in the screening: Declined to provide - Nursing Vital Signs Nursing Vital Signs: Initial Vital Signs Pulse Rate 67 06/01/24 09:49 Respiratory Rate 18 06/01/24 09:49 Blood Pressure 127/79 06/01/24 09:49 O2 Sat by Pulse Oximetry 96 06/01/24 09:49 Pain Scale Pain Intensity 5 - Physical Exam General Appearance: no apparent distress Eye Exam: PERRL/EOMI Ears, Nose, Throat Exam: normal ENT inspection Respiratory Exam: normal breath sounds Cardiovascular Exam: regular rate/rhythm Gastrointestinal/Abdomen Exam: soft, other (minimal epigastric tenderness) SpO2: 98 Ordered Tests: Active Orders 24 hr Category Date Time Status ABDOMEN AND PELVIS W CONTRAST [CT] Stat Exams 06/01/24 10:33 Completed GALLBLADDER [US] Stat Exams 06/01/24 11:11 Completed CBC W DIFF Stat Lab 06/01/24 09:45 Completed CMP Stat Lab 06/01/24 09:45 Completed HCG QUALITATIVE, URINE Stat Lab 06/01/24 09:30 Completed LIPASE Stat Lab 06/01/24 09:45 Completed Lactic Acid Stat Lab 06/01/24 09:53 Completed UA W/RFX UR CULTURE Stat Lab 06/01/24 09:30 Completed Lab/Rad Data: Laboratory Result Diagrams 06/01/24 09:45 06/01/24 09:45 Laboratory Results 06/01/24 06/01/24 06/01/24 Range/Units 09:53 09:45 09:45 WBC 10.3 H (3.98-10.04) x10^3/uL RBC 4.99 (3.93-5.22) x10^6/uL Hgb 13.0 (11.2-15.7) g/dL Hct 40.2 (34.1-44.9) % MCV 80.6 (79.4-94.8) fL MCH 26.1 (25.6-32.2) pg MCHC 32.3 (32.2-35.5) g/dL RDW 14.0 (11.7-14.4) % Plt Count 332 (182-369) x10^3/uL MPV 10.1 (9.4-12.3) fL Gran % 66.8 (34.0-71.1) % Immature Gran % (Auto) 0.5 H (0.001-0.429) % Nucleat RBC Rel Count 0.0 (0.00-0.2) % Eos # (Auto) 0.08 (0.04-0.36) x10^3/uL Immature Gran # (Auto) 0.05 H (0.001-0.031) x10^3u/L Absolute Lymphs (auto) 2.69 (1.18-3.74) x10^3/uL Absolute Monos (auto) 0.58 (0.24-0.86) x10^3/uL Absolute Nucleated RBC 0.00 (0.00-0.012) x10^3u/L Lymphocytes % 26.1 (19.3-51.7) % Monocytes % 5.6 (4.7-12.5) % Eosinophils % 0.8 (0.7-5.8) % Basophils % 0.2 (0.1-1.2) % Absolute Granulocytes 6.87 H (1.56-6.13) x10^3/uL Basophils # 0.02 (0.01-0.08) x10^3/uL Sodium 141 (135-145) mmol/L Potassium 3.3 L (3.5-5.1) mmol/L Chloride 104 (98-107) mmol/L Carbon Dioxide 21 L (22-30) mmol/L Anion Gap 18.9 H (5-15) MEQ/L BUN 13 (7-17) mg/dL Creatinine 0.78 (0.52-1.04) mg/dL Estimated GFR 106.7 ML/MIN Glucose 96 (74-106) mg/dL Lactic Acid 0.4 (0.4-2.0) Calcium 9.9 (8.4-10.2) mg/dL Total Bilirubin 0.60 (0.2-1.3) mg/dL AST 28 (14-36) U/L ALT 23 (0-35) U/L Alkaline Phosphatase 55 (38-126) U/L Serum Total Protein 8.3 H (6.3-8.2) g/dL Albumin 4.9 (3.5-5.0) g/dL Lipase 74 (23-300) U/L Urine Color (Yellow) Urine Appearance (Clear) Urine pH (4.6-8.0) Ur Specific [place] (1.005-1.030) Urine Protein (Negative) Urine Glucose (UA) (Negative) mg/dL Urine Ketones (Negative) Urine Blood (Negative) Urine Nitrite (Negative) Urine Bilirubin (Negative) Urine Urobilinogen (0.2) mg/dL Ur Leukocyte Esterase (Negative) U Hyaline Cast (Auto) (0-2) /LPF Urine Microscopic RBC (0-5) /HPF Urine Microscopic WBC (0-5) /HPF Ur Epithelial Cells (None Seen) /HPF Urine Bacteria (None Seen) /HPF Urine Culture Reflexed (NO) Urine HCG, Qual (NEGATIVE) 06/01/24 06/01/24 Range/Units 09:30 09:30 WBC (3.98-10.04) x10^3/uL RBC (3.93-5.22) x10^6/uL Hgb (11.2-15.7) g/dL Hct (34.1-44.9) % MCV (79.4-94.8) fL MCH (25.6-32.2) pg MCHC (32.2-35.5) g/dL RDW (11.7-14.4) % Plt Count (182-369) x10^3/uL MPV (9.4-12.3) fL Gran % (34.0-71.1) % Immature Gran % (Auto) (0.001-0.429) % Nucleat RBC Rel Count (0.00-0.2) % Eos # (Auto) (0.04-0.36) x10^3/uL Immature Gran # (Auto) (0.001-0.031) x10^3u/L Absolute Lymphs (auto) (1.18-3.74) x10^3/uL Absolute Monos (auto) (0.24-0.86) x10^3/uL Absolute Nucleated RBC (0.00-0.012) x10^3u/L Lymphocytes % (19.3-51.7) % Monocytes % (4.7-12.5) % Eosinophils % (0.7-5.8) % Basophils % (0.1-1.2) % Absolute Granulocytes (1.56-6.13) x10^3/uL Basophils # (0.01-0.08) x10^3/uL Sodium (135-145) mmol/L Potassium (3.5-5.1) mmol/L Chloride (98-107) mmol/L Carbon Dioxide (22-30) mmol/L Anion Gap (5-15) MEQ/L BUN (7-17) mg/dL Creatinine (0.52-1.04) mg/dL Estimated GFR ML/MIN Glucose (74-106) mg/dL Lactic Acid (0.4-2.0) Calcium (8.4-10.2) mg/dL Total Bilirubin (0.2-1.3) mg/dL AST (14-36) U/L ALT (0-35) U/L Alkaline Phosphatase (38-126) U/L Serum Total Protein (6.3-8.2) g/dL Albumin (3.5-5.0) g/dL Lipase (23-300) U/L Urine Color Yellow (Yellow) Urine Appearance Clear (Clear) Urine pH 6.0 (4.6-8.0) Ur Specific [place] 1.015 (1.005-1.030) Urine Protein Negative (Negative) Urine Glucose (UA) Negative (Negative) mg/dL Urine Ketones Negative (Negative) Urine Blood Negative (Negative) Urine Nitrite Negative (Negative) Urine Bilirubin Negative (Negative) Urine Urobilinogen 0.2 (0.2) mg/dL Ur Leukocyte Esterase Trace A (Negative) U Hyaline Cast (Auto) NONE SEEN (0-2) /LPF Urine Microscopic RBC 0-2 (0-5) /HPF Urine Microscopic WBC 0-2 (0-5) /HPF Ur Epithelial Cells None Seen (None Seen) /HPF Urine Bacteria None Seen (None Seen) /HPF Urine Culture Reflexed NO (NO) Urine HCG, Qual NEGATIVE (NEGATIVE) - Progress Progress Note: patient was seen and evaluated for abdominal pain - labs and CT of the abdomen pelvis was obtained the CT of the abdomen pelvis reveals no acute findings gallbladder ultrasound was obtained this revealed minimal sludge. 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 she has no pain at the time of discharge 06/01/24 13:14 - Departure Departure Disposition: Home Clinical Impression: Acute abdominal pain Condition: Good Critical Care Time: No Referrals: CAMRYN MOHAN MD [Primary Care Provider] - Follow up/PCP as directed
[2024-06-01 13:21] VITALS: PULSE 77; RESP 20
[2024-06-01 13:40] VITALS: BP 102/61
== END 2024-06-01 13:40 | disposition home or self-care (01) ==
LOC: ED 08:54
DX: R10.30 Lower abdominal pain, unspecified (principal); Z79.899 Other long term (current) drug therapy
CPT/HCPCS: 36415; 74177; 76705; 80053; 81001; 81025; 83605; 83690; 85025; 99284; 99285